=== PATIENT | female | born 1955 | race Caucasian/White ===

== ENCOUNTER → 2017-12-28 14:42 | Outpatient (CLI) | payer OTHER, SELFPAY ==
--- NOTE | 2017-12-28 | DI.MG.S_ITS ---
BILATERAL DIGITAL SCREENING MAMMOGRAM 3D/2D WITH CAD: 12/28/2017 CLINICAL: Routine screening. Family history of breast cancer. Comparison is made to exams dated: 12/29/2015 mammogram, 12/14/2014 mammogram, and 03/14/2005 mammogram - [facility]. There are scattered fibroglandular elements in both breasts. Current study was also evaluated with a Computer Aided Detection (CAD) system. No significant masses, calcifications, or other findings are seen in either breast. There has been no significant interval change. IMPRESSION: NEGATIVE There is no mammographic evidence of malignancy. A 1 year screening mammogram is recommended. This exam was interpreted at Station ID: [id number]. NOTE: For mammograms, a report in lay terms will be sent to the patient. Approximately 15% of breast malignancies will not be visualized mammographically. In the management of a palpable breast mass, a negative mammogram must not discourage biopsy of a clinically suspicious lesion. Electronically Signed By: Lazara quach/vinay:12/28/2017 15:37:40 letter sent: Normal Exam ACR BI-RADS Category 1: Negative 3341F
== END ==
PROVIDERS: PCP Physician Assistant; Visit Provider Physician Assistant
DX: Z12.31 Encounter for screening mammogram for malignant neoplasm of breast (principal)
CPT/HCPCS: 77063; 77067

== ENCOUNTER → 2018-03-15 13:07 | Outpatient (CLI) | payer OTHER, SELFPAY | PROVIDERS: PCP Physician Assistant; Visit Provider Physician Assistant | DX: M81.0 Age-related osteoporosis without current pathological fracture (principal); E07.9 Disorder of thyroid, unspecified; Z82.62 Family history of osteoporosis; Z78.0 Asymptomatic menopausal state | CPT/HCPCS: 77080 ==

== ENCOUNTER → 2019-03-13 07:48 | Outpatient (CLI) | payer OTHER, SELFPAY ==
--- NOTE | 2019-03-13 | DI.MG.S_ITS ---
BILATERAL DIGITAL SCREENING MAMMOGRAM 3D/2D WITH CAD: 03/13/2019 CLINICAL: Routine screening. Family history of breast cancer. Comparison is made to exams dated: 12/28/2017 mammogram, 12/29/2015 mammogram, and 12/14/2014 mammogram - [facility]. There are scattered fibroglandular elements in both breasts. Current study was also evaluated with a Computer Aided Detection (CAD) system. No significant masses, calcifications, or other findings are seen in either breast. There has been no significant interval change. IMPRESSION: NEGATIVE There is no mammographic evidence of malignancy. A 1 year screening mammogram is recommended. This exam was interpreted at Station ID: [id number]. NOTE: For mammograms, a report in lay terms will be sent to the patient. Approximately 15% of breast malignancies will not be visualized mammographically. In the management of a palpable breast mass, a negative mammogram must not discourage biopsy of a clinically suspicious lesion. Electronically Signed By: Brody wood/vinay:03/13/2019 15:50:27 letter sent: Normal Exam ACR BI-RADS Category 1: Negative 3341F
== END ==
PROVIDERS: PCP Physician Assistant; Visit Provider Internal Medicine
DX: Z12.31 Encounter for screening mammogram for malignant neoplasm of breast (principal); Z80.3 Family history of malignant neoplasm of breast
CPT/HCPCS: 77063; 77067

== ENCOUNTER 2020-05-29 00:14 | Emergency (ER) | payer OTHER, SELFPAY ==
[2020-05-29 00:26] VITALS: BP 180/100; PULSE 89; RESP 16; TEMP 36.9; O2SAT 97; BMI 28.3
[2020-05-29 00:49] LABS: Add Manual Diff / Slide Review NO; Basophils Absolute Auto 100 /uL (0-100); Basophils Percent Auto 0.9 % (0-2); Eosinophils Absolute Auto 100 /uL (0-450); Hematocrit 39.5 % (36-46); Hemoglobin 13.7 g/dL (12.0-16.0); Lymphocytes Absolute Auto 1900 /uL (1100-4500); Lymphocytes Percent Auto 22.7 % (25-40); Mean Corpuscular HGB Conc 34.6 % (30-36); Mean Corpuscular Hemoglobin 29.9 PG (26-34); Mean Corpuscular Volume 86.3 fL (80-100); Monocytes Absolute Auto 600 /uL (0-900); Monocytes Percent Auto 7.2 % (3-14); Neutrophils Absolute Auto 5800 /uL (1500-7000); Neutrophils Percent Auto 68.2 % (50-75); Platelet Count 204 X10^3/uL (150-400); Red Blood Cell Count 4.58 X10^6/uL (4.0-5.2); Red Cell Distribution Width 13.3 % (11.6-14.8); White Blood Cell Count 8.5 X10^3/uL (4.5-11.0)
[2020-05-29] MEDS: KETOROLAC 60 MG/2 ML VIAL 15 MG IV (00:54)
[2020-05-29] MEDS: SODIUM CHLORIDE 0.9% 1,000 ML 125 ML IV (00:54)
[2020-05-29 00:59] VITALS: BP 157/97; PULSE 72; O2SAT 96
[2020-05-29 00:59] LABS: Alanine Aminotransferase 30 IU/L (<35); Albumin 4.4 g/dL (3.5-5.0); Albumin Globulin Ratio 1.4 (1.0-2.8); Alkaline Phosphatase 103 U/L (38-126); Aspartate Aminotransferase 25 IU/L (14-36); BUN Creatinine Ratio 18.4 (6-22); Blood Urea Nitrogen 14 mg/dL (7-17); Calcium 9.8 mg/dL (8.4-10.2); Carbon Dioxide 26 mmol/L (22-32); Chloride 104 mmol/L (98-107); Estimated Glomerular Filt Rate > 60.0 mL/min (>60); Globulin 3.1 g/dL (1.7-4.1); Glucose 132 mg/dL (80-110); HEMOLYSIS < 15 (0-50); Lipase 113 U/L (23-300); Potassium 3.7 mmol/L (3.4-5.1); Sodium 138 mmol/L (137-145); Total Protein 7.5 g/dL (6.3-8.2)
[2020-05-29 01:00] VITALS: BP 166/100; PULSE 71; O2SAT 97
--- NOTE | 2020-05-29 01:08 | ED.ABDPAIN ---
HPI - Abdominal Pain General Chief Complaint: Abdominal Pain Stated Complaint: pain in left side around to back Time Seen by Provider: 05/29/20 00:20 Source: patient Mode of arrival: Ambulatory Limitations: no limitations History of Present Illness HPI narrative: 65-year-old female nonsmoker with history of kidney stones presents with a chief complaint of intermittent left-sided pain since Sunday. She states her pain started in her back and is since wrapped around her left flank and into her left groin. She denies any obvious provocation or palliation. She states the episodes are sharp and stabbing in nature and seem to come and go with a mind of their own. She has had episodes of nausea but denies any vomiting. She denies any change in bowel habits such as constipation or diarrhea. She denies any dysuria, frequency, urgency or obvious hematuria. She has had no fever or shaking chills. She denies any injury Related Data Previous Rx's Medication Instructions Recorded ketorolac 10 mg PO Q6H PRN #14 tab 05/29/20 ondansetron 4 mg PO TID-QID PRN #10 tab 05/29/20 Allergies Allergy/AdvReac Type Severity Reaction Status Date / Time Sulfa (Sulfonamide Allergy Unknown Unverified 06/20/17 11:52 Antibiotics) [SULFA (SULFONAMIDE ANTIBIOTICS)] codeine [CODEINE] AdvReac Unknown Unverified 06/20/17 11:52 Review of Systems Constitutional Constitutional: Denies chills, Denies fatigue, Denies fever(s), Denies frequent falls, Denies lethargy and Denies weakness Eyes Eyes: Denies change in vision, Denies eye discharge, Denies irritation and Denies loss of vision ENT Ears, Nose, Mouth, and Throat: Denies change in voice, Denies dizziness, Denies neck pain, Denies sore throat and Denies throat swelling Cardiovascular Cardiovascular: Denies chest pain, Denies irregular heart rhythm, Denies lightheadedness, Denies palpitations, Denies dyspnea, Denies dyspnea on exertion and Denies orthopnea Respiratory Respiratory: Denies cough, Denies dyspnea, Denies dyspnea on exertion and Denies wheezing Gastrointestinal Gastrointestinal: Denies abdominal pain, Denies change in bowel habits, Denies diarrhea, Reports nausea and Denies vomiting Genitourinary Genitourinary: Reports flank pain Genitourinary: Reports flank pain Musculoskeletal Musculoskeletal: Reports back pain, Denies neck pain and Denies numbness Integumentary/Breasts Skin/Breast: Denies pruritus, Denies erythema, Denies rash and Denies wounds Neurologic Neurologic: Denies behavioral changes, Denies confusion, Denies dizziness, Denies frequent falls, Denies loss of vision, Denies numbness and Denies weakness Psychiatric Psychiatric: Denies anxiety, Denies behavioral changes, Denies confusion, Denies depression, Denies homicidal ideation and Denies suicidal ideation Endocrine Endocrine: Denies fatigue, Denies flushing and Denies palpitations Hematologic/Lymphatic Hematologic/Lymphatic: Denies easy bruising Allergic/Immunologic Allergic/Immunologic: Denies urticaria, Denies throat swelling and Denies wheezing Patient History Social History Smoking Status: Never smoker Smoking Status: Never smoker alcohol intake frequency: a few times a month Substance Use Type: does not use Exam Narrative Exam Narrative: GENERAL: [65] year old patient appears stated age. Well-nourished, well-developed patient, in mild distress. HEAD: Atraumatic. Normocephalic. EYES: Pupils equal round and reactive. Extraocular motions intact. No scleral icterus. No injection or drainage. ENT: Nose without bleeding, purulent drainage. Throat without erythema, tonsillar hypertrophy or exudate. Airway patent. NECK: Trachea midline. Non tender CARDIOVASCULAR: Regular rate and rhythm without murmurs, gallops, or rubs. RESPIRATORY: Clear to auscultation. Breath sounds equal bilaterally. No wheezes, rales, or rhonchi. GASTROINTESTINAL: Abdomen soft, non-tender, nondistended. Bowel sounds present in all four quadrants EXTREMITIES: No edema or joint tenderness. BACK: Nontender without deformity or crepitance. No flank tenderness. NEURO: AOx3. SKIN: No rash or erythema of visible areas Initial Vital Signs Initial Vital Signs: Vital Signs Temperature 98.5 F 05/29/20 00:26 Pulse Rate 89 05/29/20 00:26 Respiratory Rate 16 05/29/20 00:26 Blood Pressure 180/100 H 05/29/20 00:26 Pulse Oximetry 97 05/29/20 00:26 Course Orders Ordered: ED Orders 05/29/20 00:40 Complete Blood Count AUTO DIFF Stat Comprehensive Metabolic Panel Stat Lipase Stat 05/29/20 01:09 CT kidney ureter bladder (KUB) Stat Sodium Chloride (Normal Saline 0.9%) 1,000 mls @ 125 mls/hr IV CONT RAD Last Admin: 05/29/20 00:54 Dose: 125 mls/hr Documented by: ROYCE Discontinued Medications Hydrocodone Bitart/Acetaminophen (Hydrocodone/Acet 5/325 Prepack) 1 bottle MISC SEEINSTR ONE Stop: 05/29/20 02:09 Ketorolac Tromethamine (Ketorolac 60 Mg/2 Ml Vial) 15 mg IV NOW ONE Stop: 05/29/20 00:37 Last Admin: 05/29/20 00:54 Dose: 15 mg Documented by: ROYCE Ondansetron HCl (Ondansetron 4 Mg Odt Prepack) 1 bottle MISC SEEINSTR ONE Stop: 05/29/20 02:09 Vital Signs Vital signs: Vital Signs - 8 hr 05/29/20 00:26 05/29/20 00:59 05/29/20 01:00 Temperature 98.5 F Pulse Rate 89 72 71 Respiratory Rate 16 Blood Pressure 180/100 H 157/97 H 166/100 H Pulse Oximetry 97 96 97 MDM - Abdominal Pain Lab Data Result diagrams: 05/29/20 00:40 05/29/20 00:40 Labs: Lab Results 05/29/20 05/29/20 Range/Units 00:40 00:40 WBC 8.5 (4.5-11.0) X10^3/uL RBC 4.58 (4.0-5.2) X10^6/uL Hgb 13.7 (12.0-16.0) g/dL Hct 39.5 (36-46) % MCV 86.3 (80-100) fL MCH 29.9 (26-34) PG MCHC 34.6 (30-36) % RDW 13.3 (11.6-14.8) % Plt Count 204 (150-400) X10^3/uL Neut % (Auto) 68.2 (50-75) % Lymph % (Auto) 22.7 L (25-40) % [place] % (Auto) 7.2 (3-14) % Eos % (Auto) 1.0 L (2-4) % Baso % (Auto) 0.9 (0-2) % Neut # (Auto) 5800 (0533-4869) /uL Lymph # (Auto) 1900 (9472-9451) /uL [place] # (Auto) 600 (0-900) /uL Eos # (Auto) 100 (0-450) /uL Baso # (Auto) 100 (0-100) /uL Sodium 138 (137-145) mmol/L Potassium 3.7 (3.4-5.1) mmol/L Chloride 104 (98-107) mmol/L Carbon Dioxide 26 (22-32) mmol/L BUN 14 (7-17) mg/dL Creatinine 0.76 (0.52-1.04) mg/dL Estimated GFR > 60.0 (>60) mL/min BUN/Creatinine Ratio 18.4 (6-22) Glucose 132 H (80-110) mg/dL Calcium 9.8 (8.4-10.2) mg/dL Total Bilirubin 1.0 (0.2-1.3) mg/dL AST 25 (14-36) IU/L ALT 30 (<35) IU/L Alkaline Phosphatase 103 (38-126) U/L Total Protein 7.5 (6.3-8.2) g/dL Albumin 4.4 (3.5-5.0) g/dL Globulin 3.1 (1.7-4.1) g/dL Albumin/Globulin Ratio 1.4 (1.0-2.8) Lipase 113 (23-300) U/L Point of care testing: Urine Dip Bedside Urine Glucose Negative Bedside Urine Bilirubin - Negative Bedside Urine Ketone - Negative Urine Specific [place] 1.025 Bedside Urine Occult Blood +/- Bedside Urine Urobilinogen +/- 1mg Bedside Urine Nitrite - Negative Bedside Urine Leukocytes - Negative Esterase Imaging Data CT scan - abdomen/pelvis: Radiologist's Impression: No acute process Nonobstructing bilateral nephrolithiasis MDM Narrative Medical decision making narrative: Multiple etiologies for patient's symptoms considered including: [kidney stone given intermittent pain of flank with hematuria vs. ureteral spasm vs. pyelonephritis vs. bowel obstruction vs. other] Patient's symptoms improved over duration of stay with above-stated therapies. indings and discharge diagnosis discussed with patient/family followed by verbalization of understanding Return precautions discussed with patient/family whom verbalize understanding. Discharge Plan Departure Patient Disposition: Home Clinical Impression: Acute flank pain Instructions: DI for Kidney Stones Activity Restrictions/Additional Instructions: *You have been diagnosed with [left flank pain with hematuria is highly suspicious for kidney stones. Your blood work, urine and CT are very reassuring.] *What to do: *Take medications as directed: Prescription for anti-inflammatory and antinausea medicine have been electronically transmitted to [facility] your request * you have been given the contact information for the [facility] resource line. Please call Sunday morning and let them know you were seen in the emergency department and we asked your seen in follow-up. They will help you establish with a local primary care provider *Return to ER if you should have any new, worsening or concerning symptoms, such as [worsening pain, fever over 101 F, persistent vomiting or other bothersome symptoms] Prescriptions: New ketorolac 10 mg tablet 10 mg PO Q6H PRN (Reason: pain) Qty: 14 RF: 0 ondansetron 4 mg tablet,disintegrating 4 mg PO TID-QID PRN (Reason: nausea and vomiting) Qty: 10 RF: 0 Referrals: [facility] [Outside] Bia Jasmine PA-C [Primary Care Provider] -
--- NOTE | 2020-05-29 01:09 | DI.CT.S_ITS ---
PROCEDURE: CT KIDNEY URETER BLADDER (KUB) INDICATIONS: severe left flank pain, radiates to groin, hematuria TECHNIQUE: Noncontrast 5 mm thick sections acquired from the diaphragms to the symphysis. 5 mm thick coronal and sagittal reformats were then performed. For radiation dose reduction, the following was used: automated exposure control, adjustment of mA and/or kV according to patient size. COMPARISON: [facility], CT, KIDNEY/ URETER/BLADDER, 01/02/2009, 12:33. [facility], CT, KIDNEY/ URETER/BLADDER, 08/18/2011, 9:54. FINDINGS: Image quality: Excellent. Lung bases: Lung bases are clear. Heart size is normal. Coronary artery calcifications suspected. Small hiatal hernia. Urinary system: Both kidneys are normal in size. A few kidney stones bilaterally. At least 2 punctate on the right. At least 2 on the left; largest at the inferior pole measuring 5 mm. No hydronephrosis or perinephric fat stranding. Both ureters appear non-dilated throughout their expected courses. Bladder wall thickness is normal; no calcified bladder stones. Other solid organs: Liver is normal in size. Hypodense focus in the left lobe of the liver measuring 1.1 x 1 cm, (2/13). This is not definitely seen on the prior noncontrast CT but may be faintly visualized on the CT from 2008. Gallbladder is unremarkable. Pancreas is normal in contours. Spleen is normal in size. No adrenal nodules. Peritoneum and bowel: Unenhanced bowel loops demonstrate normal wall thickness and caliber. A few colonic diverticuli. Normal appendix. No free fluid or air. Nodes and vessels: No retroperitoneal or mesenteric adenopathy by size criteria. Aorta and inferior vena cava are normal in caliber. Mild calcified atherosclerotic plaque. Abdominal wall: No ventral hernias. Pelvis: No free pelvic fluid. No inguinal hernias or adenopathy. Anteverted uterus. Bones: No suspicious bony lesions. No vertebral body compression fractures. IMPRESSION: 1. No hydronephrosis. No obstructing calculus demonstrated. 2. Small bilateral kidney stones. 3. No free fluid. 4. Hypodense lesion in the left lobe of the liver measuring 1.1 cm. This may have been present on the CT from 2008. This may represent a hemangioma or adenoma but is indeterminate. -Recommend non emergent further characterization with three-phase liver CT or liver MRI. Minor discrepancy with the overnight preliminary interpretation. Comment: Findings were discussed with Delfino Ballesteros at the time of dictation. Dictated by: Peter Venegas M.D. on 05/29/2020 at 9:21 Approved by: Peter Venegas M.D. on 05/29/2020 at 9:34
[2020-05-29 01:30] VITALS: PULSE 76; O2SAT 95
[2020-05-29 02:00] VITALS: PULSE 71; O2SAT 96
[2020-05-29] MEDS: HYDROCODONE/ACET 5/325 PREPACK 1 BOTTLE MISC (02:21)
[2020-05-29] MEDS: ONDANSETRON 4 MG ODT PREPACK 1 BOTTLE MISC (02:21)
[2020-05-29 02:23] VITALS: BP 145/92; PULSE 74; O2SAT 96
== END 2020-05-29 02:30 | disposition home or self-care (01) ==
PROVIDERS: Emergency Provider Emergency Medicine; PCP Physician Assistant
DX: R10.9 Unspecified abdominal pain (principal)
CPT/HCPCS: 36415; 74176; 80053; 81003; 83690; 85025; 96361; 96374; 99284; J1885

== ENCOUNTER → 2021-06-17 15:48 | Outpatient (CLI) | payer OTHER, SELFPAY ==
--- NOTE | 2021-06-17 | DI.MG.S_ITS ---
BILATERAL DIGITAL SCREENING MAMMOGRAM 3D/2D WITH CAD: 06/17/2021 CLINICAL: Routine screening. Family history of breast cancer. Comparison is made to exams dated: 03/13/2019 mammogram, 12/28/2017 mammogram, and 12/29/2015 mammogram - [facility]. There are scattered fibroglandular elements in both breasts. Current study was also evaluated with a Computer Aided Detection (CAD) system. No significant masses, calcifications, or other findings are seen in either breast. There has been no significant interval change. IMPRESSION: NEGATIVE There is no mammographic evidence of malignancy. A 1 year screening mammogram is recommended. This exam was interpreted at Station ID: [id number]. NOTE: For mammograms, a report in lay terms will be sent to the patient. Approximately 15% of breast malignancies will not be visualized mammographically. In the management of a palpable breast mass, a negative mammogram must not discourage biopsy of a clinically suspicious lesion. Electronically Signed By: Alfonso Ramos acr/penrad:06/17/2021 16:48:08 letter sent: Normal Exam ACR BI-RADS Category 1: Negative 3341F
== END ==
PROVIDERS: PCP Internal Medicine; Referring Provider Internal Medicine; Visit Provider Internal Medicine
DX: Z12.31 Encounter for screening mammogram for malignant neoplasm of breast (principal); Z80.3 Family history of malignant neoplasm of breast
CPT/HCPCS: 77063; 77067

== ENCOUNTER → 2023-01-25 15:16 | Outpatient (CLI) | payer OTHER, SELFPAY ==
[2023-01-25 18:19] LABS: Alanine Aminotransferase 38 IU/L (<35); Albumin 4.1 g/dL (3.5-5.0); Albumin Globulin Ratio 1.2 (1.0-2.8); Alkaline Phosphatase 267 U/L (38-126); Aspartate Aminotransferase 24 IU/L (14-36); Bilirubin Total 0.8 mg/dL (0.2-1.3); Blood Urea Nitrogen 16 mg/dL (7-17); Calcium 9.9 mg/dL (8.4-10.2); Carbon Dioxide 25 mmol/L (22-32); Chloride 102 mmol/L (98-107); Estimated Glomerular Filt Rate > 60 mL/min (>60); Globulin 3.5 g/dL (1.7-4.1); Glucose 103 mg/dL (80-110); HEMOLYSIS < 15 (0-50); Potassium 3.6 mmol/L (3.4-5.1); Sodium 136 mmol/L (137-145); Total Protein 7.6 g/dL (6.3-8.2)
== END ==
PROVIDERS: PCP Internal Medicine; Referring Provider Internal Medicine; Visit Provider Internal Medicine
DX: R79.89 Other specified abnormal findings of blood chemistry (principal); N20.0 Calculus of kidney
CPT/HCPCS: 36415; 80053

== ENCOUNTER → 2023-07-14 09:32 | Outpatient (CLI) | payer OTHER, SELFPAY ==
--- NOTE | 2023-07-14 09:33 | DI.MG.S_ITS ---
BILATERAL DIGITAL SCREENING MAMMOGRAM 3D/2D WITH CAD: 07/14/2023 CLINICAL: Routine screening. Family history of breast cancer. Comparison is made to exams dated: 06/17/2021 mammogram, 03/13/2019 mammogram, and 12/28/2017 mammogram - [facility]. There are scattered areas of fibroglandular density in both breasts (category b / 25%-50% glandular tissue). Current study was also evaluated with a Computer Aided Detection (CAD) system. No significant masses, calcifications, or other findings are seen in either breast. There has been no significant interval change. IMPRESSION: NEGATIVE There is no mammographic evidence of malignancy. A 1 year screening mammogram is recommended. Based on the Tyrer Cuzick model (a risk assessment model) the patient's lifetime risk is 12.2% and her 10 year risk is 6.2%. According to the ACR, ACS, and NCCN guidelines, an annual breast MRI exam along with mammogram is recommended if the patient's lifetime risk is 20% or greater. This exam was interpreted at Station ID: [id number]. NOTE: For mammograms, a report in lay terms will be sent to the patient. Approximately 15% of breast malignancies will not be visualized mammographically. In the management of a palpable breast mass, a negative mammogram must not discourage biopsy of a clinically suspicious lesion. Electronically Signed By: Brody wood/vinay:07/14/2023 12:25:18 letter sent: Normal Exam ACR BI-RADS Category 1: Negative 3341F
== END ==
PROVIDERS: PCP Internal Medicine; Referring Provider Internal Medicine; Visit Provider Internal Medicine
DX: Z12.31 Encounter for screening mammogram for malignant neoplasm of breast (principal); R92.323 Mammographic fibroglandular density, bilateral breasts; Z80.3 Family history of malignant neoplasm of breast
CPT/HCPCS: 77063; 77067

== ENCOUNTER → 2023-09-14 10:02 | Outpatient (CLI) | payer OTHER, SELFPAY ==
--- NOTE | 2023-09-14 | DI.RAD.S_ITS ---
PROCEDURE: XR DEXA AXIAL SKELETON INDICATIONS: Asymptomatic menopausal state COMPARISON: None. FINDINGS: Lumbar Spine: Bone mineral density 0.730 g/cm2, T score -2.9, previously -2.6, dissimilar scan type does not allow for statistical comparison. Left Hip: Bone mineral density 0.768 g/cm2, T score -1.4, stable. Left Femoral Neck: Bone mineral density 0.624 g/cm2, T score -2, stable. Right Hip: Bone mineral density 0.778 g/cm2, T score -1.3, stable. Right Femoral Neck: Bone mineral density 0.591 g/cm2, T score -2.3, previously -1.9, dissimilar scan type does not allow for statistical comparison. Fracture Risk Calculation (when applicable): Not applicable due to osteoporosis diagnosis. (T score greater or equal to -1.0 to: NORMAL) (T score from -1.1 to -2.4: OSTEOPENIA) (T score less than or equal to -2.5: OSTEOPOROSIS) IMPRESSION: Osteoporosis. Dissimilar scan type does not allow for statistical comparison. Follow-up guidelines as follows: Osteoporosis: Consider a repeat DEXA and Vertebral Fracture Assessment (VFA) exam in 2 years or sooner if medically necessary, to reassess this patient's status. Osteopenia: Consider a repeat DEXA in 2-3 years to reassess this patient's status, or if there is a new clinical indication. Normal: Consider a repeat DEXA in 5 years or sooner, or if there is a new clinical indication. All treatment decisions require clinical judgment and consideration of individual patient factors, including patient preferences, comorbidities, previous drug use, risk factors not captured in the FRAX model (e.g., frailty, falls, vitamin D deficiency, increased bone turnover, interval significant decline in bone density ) and possible under- or over-estimation of fracture risk by FRAX. In addition, the NOF Guide recommends that FDA-approved medical therapies be considered in postmenopausal women and men age >= 50 years with a: * Hip or vertebral (clinical or morphometric) fracture * T-score of <=-2.5 at the spine or hip * Ten-year fracture probability by FRAX of >= 3% for hip fracture or >=20% for major osteoporotic fracture. People with diagnosed cases of osteoporosis or at high risk for fracture should have regular bone mineral density tests. For patients eligible for Medicare, routine testing is allowed once every 2 years. The testing frequency can be increased to one year for patients who have rapidly progressing disease, those who are receiving or discontinuing medical therapy to restore bone mass, or have additional risk factors. Dictated by: Yg Mcelroy M.D. on 09/14/2023 at 10:32 Approved by: Yg Mcelroy M.D. on 09/14/2023 at 10:35
== END ==
PROVIDERS: PCP Internal Medicine; Referring Provider Internal Medicine; Visit Provider Internal Medicine
DX: Z78.0 Asymptomatic menopausal state (principal); M81.0 Age-related osteoporosis without current pathological fracture
CPT/HCPCS: 77080

== ENCOUNTER 2024-01-05 10:50 | Emergency (ER) | payer OTHER, SELFPAY ==
[2024-01-05] VITALS (46 sets, daily range): BP systolic 125–186; BP diastolic 73–106; PULSE 77–109; RESP 12–36; TEMP 36; O2SAT 90–99; BMI 30.9
--- NOTE | 2024-01-05 11:13 | ED.EXTPRO ---
HPI - Extremity Problem <Kelle Koroma PA-C - Last Filed: 01/06/24 10:15> General Chief complaint: Extremity Problem,Nontraumatic Stated complaint: poss blood clot L leg Time Seen by Provider: 01/05/24 11:09 History of Present Illness HPI Narrative: Patient is a pleasant 68-year-old female presents to the emergency room department with family with complaints of sudden onset this morning when she woke up of left lower extremity redness full extremity, tightness, pain with ambulation, pain with movement, and then sensation that the leg is quite tight. Hurts when she bends it, painful when she ambulates, patient denies estrogen usage, she does not smoke, no recent injury, no recent fall, no recent trauma. No recent surgical intervention. 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 Has a history of heart attack, takes metoprolol, has atherosclerosis and takes atorvastatin. She also takes a baby aspirin but did not take her baby aspirin this morning. She has no other further complaints. No shortness of breath, chest pain, diaphoresis, weakness, nausea, vomiting. She has no urinary symptoms. She has no other musculoskeletal discomfort and pain. She has no weakness numbness or tingling to the extremity. Related Data Previous Rx's Medication Instructions Recorded ketorolac 10 mg tablet 10 mg PO Q6H PRN pain #14 tabs 05/29/20 ondansetron 4 mg disintegrating 4 mg PO TID-QID PRN nausea and 05/29/20 tablet vomiting #10 tabs Allergies Allergy/AdvReac Type Severity Reaction Status Date / Time Sulfa (Sulfonamide Allergy Unknown Unverified 06/20/17 11:52 Antibiotics) [SULFA (SULFONAMIDE ANTIBIOTICS)] codeine [CODEINE] AdvReac Unknown Unverified 06/20/17 11:52 Review of Systems <Kelle Koroma PA-C - Last Filed: 01/06/24 10:15> Review of Systems Narrative: Negative except as above Musculoskeletal Comments: Left lower extremity swollen tight painful with ambulation painful with movement no recent injury trauma or fall no history of estrogen no history of smoking no history surgical intervention no history of previous DVT Patient History <Kelle Koroma PA-C - Last Filed: 01/06/24 10:15> Social History Smoking Status: Never smoker Smoking Status: Never smoker alcohol intake frequency: a few times a month Substance Use Type: does not use Exam <Kelle Koroma PA-C - Last Filed: 01/06/24 10:15> Initial Vital Signs Initial Vital Signs: Vital Signs Temperature 96.8 F L 01/05/24 10:53 Pulse Rate 102 H 01/05/24 10:53 Respiratory Rate 16 01/05/24 10:53 Blood Pressure 138/94 H 01/05/24 10:53 Pulse Oximetry 98 01/05/24 10:53 Oxygen Delivery Method Room Air 01/05/24 10:53 Reviewed Const General: cooperative, healthy appearing, comfortable, well developed, well groomed, No acute distress, No in distress and No anxious Eyes General: Yes appearance normal, both eyes and all related structures Pupils: PERRL EOM: EOM intact bilaterally Resp Auscultation: clear to auscultation bilaterally, no crackles, no rales, no rhonchi, no wheezes, no rubs and no vesicular sounds Tactile Fremitus: tactile fremitus absent Cardio Rate: regular rate Rhythm: regular rhythm Heart Sounds: S1 normal, S2 normal, normal S1 and S2, no click, no gallops, no murmurs and no rubs Skin Other: The lower extremity on the left side is red, noticeably different color and temperature than the other extremities. Neuro Other: Cranial nerves are grossly intact, cognition, speech are intact. Extrem Other: Range of motion, strength, pulses, cap refill preserved in the upper extremities and right lower extremity. The left lower extremity is Fausto to observation, cap refill is preserved, her distal popliteal and pedal pulses are present. There is no edema, negative Homans sign, no cords, plantar and dorsiflexion causes some discomfort and pain but it is more of a sensation of movement of tightness in the calf and thigh area. There is no ecchymosis, there is no bruising that is noted on exam. There is tightness noted on exam of the calf and thigh area. Her femoral pulses are present but slightly diminished. There is no edema to the thigh. Patient is able to raise leg off the bed does not cause her any discomfort and pain active range of motion causes her some discomfort, passive range of motion causes her discomfort, she is able to stand and ambulate under her own power though there is an antalgic gait due to the discomfort and pain associated with a tightness in the left lower extremity. Right thigh 19 in, left thigh 20.5 in, right calf 14.35 in, left calf 15.5 in. Psych Other: Appearance, mental status, speech, movement, mood, affect, thought process, thought content and judgment are intact <Ester Leslie MD - Last Filed: 01/06/24 20:37> Initial Vital Signs Initial Vital Signs: Vital Signs Temperature 96.8 F L 01/05/24 10:53 Pulse Rate 102 H 01/05/24 10:53 Respiratory Rate 16 01/05/24 10:53 Blood Pressure 138/94 H 01/05/24 10:53 Pulse Oximetry 98 01/05/24 10:53 Oxygen Delivery Method Room Air 01/05/24 10:53 <Marquis Culver MD - Last Filed: 01/06/24 07:31> Initial Vital Signs Initial Vital Signs: Vital Signs Temperature 96.8 F L 01/05/24 10:53 Pulse Rate 102 H 01/05/24 10:53 Respiratory Rate 16 01/05/24 10:53 Blood Pressure 138/94 H 01/05/24 10:53 Pulse Oximetry 98 01/05/24 10:53 Oxygen Delivery Method Room Air 01/05/24 10:53 Scores <Kelle Koroma PA-C - Last Filed: 01/06/24 10:15> GCS Citation: 15 Wells' Criteria for PE Citation:: 4.5 Neal' Criteria for DVT Citation:: 3 likely Course <Kelle Koroma PA-C - Last Filed: 01/06/24 10:15> Orders Ordered: Discontinued Medications Atorvastatin Calcium (Atorvastatin 20 Mg Tablet) 80 mg PO NOW ONE Stop: 01/05/24 19:52 Last Admin: 01/05/24 20:03 Dose: 80 mg Documented By: BELTRAN Heparin Sodium (Porcine) (Heparin 5,000 Unit/Ml Vial) 6,500 unit 80 unit/kg (6500 unit) IV NOW ONE Stop: 01/05/24 15:56 Last Admin: 01/05/24 16:42 Dose: 6,500 unit Documented By: JOEL Heparin Sodium/Dextrose (Heparin Drip) 25,000 unit in 500 mls @ 28.576 mls/hr IV CONT RAD; Protocol Last Titration: 01/06/24 07:15 Dose: 13 units/kg/hr, 20.639 mls/hr Documented By: BELTRAN Co-signed By: ZACH Titration: 01/06/24 00:23 Dose: 14 units/kg/hr, 22.226 mls/hr Documented By: BELTRAN Co-signed By: LINDSEY Titration: 01/05/24 23:25 Dose: 0 units/kg/hr, 0 mls/hr Documented By: BELTRAN Co-signed By: XIMENA Admin: 01/05/24 16:43 Dose: 18 units/kg/hr, 28.576 mls/hr Documented By: JOEL Co-signed By: JESSICA Metoprolol Succinate (Metoprolol Er 50 Mg Tablet) 50 mg PO NOW ONE Stop: 01/05/24 19:50 Last Admin: 01/05/24 20:03 Dose: 50 mg Documented By: BELTRAN Vital Signs Vital signs: Vital Signs - 8 hr 01/06/24 02:20 01/06/24 02:20 01/06/24 02:30 Pulse Rate 71 75 Respiratory Rate 15 16 Blood Pressure 108/73 Pulse Oximetry 94 94 Oxygen Delivery Method 01/06/24 02:40 01/06/24 02:40 01/06/24 03:00 Pulse Rate 72 Respiratory Rate 16 Blood Pressure 116/75 103/69 Pulse Oximetry 95 Oxygen Delivery Method 01/06/24 03:00 01/06/24 03:20 01/06/24 03:20 Pulse Rate 66 74 Respiratory Rate 16 17 Blood Pressure 119/68 Pulse Oximetry 95 96 Oxygen Delivery Method Room Air 01/06/24 03:30 01/06/24 03:40 01/06/24 03:40 Pulse Rate 71 69 Respiratory Rate 17 16 Blood Pressure 112/71 Pulse Oximetry 92 93 Oxygen Delivery Method Room Air Room Air 01/06/24 04:00 01/06/24 04:00 01/06/24 04:20 Pulse Rate 68 69 Respiratory Rate 17 16 Blood Pressure 105/58 L Pulse Oximetry 94 93 Oxygen Delivery Method 01/06/24 04:24 01/06/24 04:24 01/06/24 04:30 Pulse Rate 73 76 Respiratory Rate 18 20 Blood Pressure 111/67 Pulse Oximetry 96 97 Oxygen Delivery Method 01/06/24 05:00 01/06/24 05:30 01/06/24 06:02 Pulse Rate 71 69 Respiratory Rate 17 15 Blood Pressure 119/72 Pulse Oximetry 93 96 Oxygen Delivery Method 01/06/24 06:02 Pulse Rate 71 Respiratory Rate 24 Blood Pressure Pulse Oximetry 96 Oxygen Delivery Method Reviewed <Ester Leslie MD - Last Filed: 01/06/24 20:37> Orders Ordered: Discontinued Medications Atorvastatin Calcium (Atorvastatin 20 Mg Tablet) 80 mg PO NOW ONE Stop: 01/05/24 19:52 Last Admin: 01/05/24 20:03 Dose: 80 mg Documented By: BELTRAN Heparin Sodium (Porcine) (Heparin 5,000 Unit/Ml Vial) 6,500 unit 80 unit/kg (6500 unit) IV NOW ONE Stop: 01/05/24 15:56 Last Admin: 01/05/24 16:42 Dose: 6,500 unit Documented By: JOEL Heparin Sodium/Dextrose (Heparin Drip) 25,000 unit in 500 mls @ 28.576 mls/hr IV CONT RAD; Protocol Last Titration: 01/06/24 07:15 Dose: 13 units/kg/hr, 20.639 mls/hr Documented By: BELTRAN Co-signed By: KM Titration: 01/06/24 00:23 Dose: 14 units/kg/hr, 22.226 mls/hr Documented By: BELTRAN Co-signed By: KW Titration: 01/05/24 23:25 Dose: 0 units/kg/hr, 0 mls/hr Documented By: BELTRAN Co-signed By: XIMENA Admin: 01/05/24 16:43 Dose: 18 units/kg/hr, 28.576 mls/hr Documented By: JOEL Co-signed By: JESSICA Metoprolol Succinate (Metoprolol Er 50 Mg Tablet) 50 mg PO NOW ONE Stop: 01/05/24 19:50 Last Admin: 01/05/24 20:03 Dose: 50 mg Documented By: BELTRAN Vital Signs Vital signs: Vital Signs - 8 hr 01/06/24 02:20 01/06/24 02:20 01/06/24 02:30 Pulse Rate 71 75 Respiratory Rate 15 16 Blood Pressure 108/73 Pulse Oximetry 94 94 Oxygen Delivery Method 01/06/24 02:40 01/06/24 02:40 01/06/24 03:00 Pulse Rate 72 Respiratory Rate 16 Blood Pressure 116/75 103/69 Pulse Oximetry 95 Oxygen Delivery Method 01/06/24 03:00 01/06/24 03:20 01/06/24 03:20 Pulse Rate 66 74 Respiratory Rate 16 17 Blood Pressure 119/68 Pulse Oximetry 95 96 Oxygen Delivery Method Room Air 01/06/24 03:30 01/06/24 03:40 01/06/24 03:40 Pulse Rate 71 69 Respiratory Rate 17 16 Blood Pressure 112/71 Pulse Oximetry 92 93 Oxygen Delivery Method Room Air Room Air 01/06/24 04:00 01/06/24 04:00 01/06/24 04:20 Pulse Rate 68 69 Respiratory Rate 17 16 Blood Pressure 105/58 L Pulse Oximetry 94 93 Oxygen Delivery Method 01/06/24 04:24 01/06/24 04:24 01/06/24 04:30 Pulse Rate 73 76 Respiratory Rate 18 20 Blood Pressure 111/67 Pulse Oximetry 96 97 Oxygen Delivery Method 01/06/24 05:00 01/06/24 05:30 01/06/24 06:02 Pulse Rate 71 69 Respiratory Rate 17 15 Blood Pressure 119/72 Pulse Oximetry 93 96 Oxygen Delivery Method 01/06/24 06:02 Pulse Rate 71 Respiratory Rate 24 Blood Pressure Pulse Oximetry 96 Oxygen Delivery Method <Marquis Culver MD - Last Filed: 01/06/24 07:31> Orders Ordered: Discontinued Medications Atorvastatin Calcium (Atorvastatin 20 Mg Tablet) 80 mg PO NOW ONE Stop: 01/05/24 19:52 Last Admin: 01/05/24 20:03 Dose: 80 mg Documented By: BELTRAN Heparin Sodium (Porcine) (Heparin 5,000 Unit/Ml Vial) 6,500 unit 80 unit/kg (6500 unit) IV NOW ONE Stop: 01/05/24 15:56 Last Admin: 01/05/24 16:42 Dose: 6,500 unit Documented By: JOEL Heparin Sodium/Dextrose (Heparin Drip) 25,000 unit in 500 mls @ 28.576 mls/hr IV CONT RAD; Protocol Last Titration: 01/06/24 07:15 Dose: 13 units/kg/hr, 20.639 mls/hr Documented By: BELTRAN Co-signed By: ZACH Titration: 01/06/24 00:23 Dose: 14 units/kg/hr, 22.226 mls/hr Documented By: BELTRAN Co-signed By: LINDSEY Titration: 01/05/24 23:25 Dose: 0 units/kg/hr, 0 mls/hr Documented By: BELTRAN Co-signed By: XIMENA Admin: 01/05/24 16:43 Dose: 18 units/kg/hr, 28.576 mls/hr Documented By: JOEL Co-signed By: JESSICA Metoprolol Succinate (Metoprolol Er 50 Mg Tablet) 50 mg PO NOW ONE Stop: 01/05/24 19:50 Last Admin: 01/05/24 20:03 Dose: 50 mg Documented By: BELTRAN Vital Signs Vital signs: Vital Signs - 8 hr 01/06/24 02:20 01/06/24 02:20 01/06/24 02:30 Pulse Rate 71 75 Respiratory Rate 15 16 Blood Pressure 108/73 Pulse Oximetry 94 94 Oxygen Delivery Method 01/06/24 02:40 01/06/24 02:40 01/06/24 03:00 Pulse Rate 72 Respiratory Rate 16 Blood Pressure 116/75 103/69 Pulse Oximetry 95 Oxygen Delivery Method 01/06/24 03:00 01/06/24 03:20 01/06/24 03:20 Pulse Rate 66 74 Respiratory Rate 16 17 Blood Pressure 119/68 Pulse Oximetry 95 96 Oxygen Delivery Method Room Air 01/06/24 03:30 01/06/24 03:40 01/06/24 03:40 Pulse Rate 71 69 Respiratory Rate 17 16 Blood Pressure 112/71 Pulse Oximetry 92 93 Oxygen Delivery Method Room Air Room Air 01/06/24 04:00 01/06/24 04:00 01/06/24 04:20 Pulse Rate 68 69 Respiratory Rate 17 16 Blood Pressure 105/58 L Pulse Oximetry 94 93 Oxygen Delivery Method 01/06/24 04:24 01/06/24 04:24 01/06/24 04:30 Pulse Rate 73 76 Respiratory Rate 18 20 Blood Pressure 111/67 Pulse Oximetry 96 97 Oxygen Delivery Method 01/06/24 05:00 01/06/24 05:30 01/06/24 06:02 Pulse Rate 71 69 Respiratory Rate 17 15 Blood Pressure 119/72 Pulse Oximetry 93 96 Oxygen Delivery Method 01/06/24 06:02 Pulse Rate 71 Respiratory Rate 24 Blood Pressure Pulse Oximetry 96 Oxygen Delivery Method MDM - Extremity (Nontraumatic) <Kelle Koroma PA-C - Last Filed: 01/06/24 10:15> Lab Data 01/06/24 06:49 01/05/24 13:28 Labs: Lab Results 01/05/24 01/05/24 01/05/24 Range/Units 13:28 16:30 22:48 WBC 10.6 (4.5-11.0) X10^3/uL RBC 4.66 (4.0-5.2) X10^6/uL Hgb 13.7 (12.0-16.0) g/dL Hct 40.7 (36-46) % MCV 87.5 (80-100) fL MCH 29.4 (26-34) PG MCHC 33.6 (30-36) % RDW 13.7 (11.6-14.8) % Plt Count 233 (150-400) X10^3/uL Neut % (Auto) 84.8 H (50-75) % Lymph % (Auto) 8.9 L (25-40) % [place] % (Auto) 5.3 (3-14) % Eos % (Auto) 0.6 L (2-4) % Baso % (Auto) 0.4 (0-2) % Neut # (Auto) 9000 H (7533-6458) /uL Lymph # (Auto) 900 L (9863-3756) /uL [place] # (Auto) 600 (0-900) /uL Eos # (Auto) 100 (0-450) /uL Baso # (Auto) 0 (0-100) /uL PT 11.0 (9.4-12.5) SECONDS INR 1.0 (0.9-1.3) APTT 31 32 177 H* D (25.1-36.5) SECONDS D-Dimer 3908 H (<500) ng/ml Sodium 138 (137-145) mmol/L Potassium 4.1 (3.4-5.1) mmol/L Chloride 105 (98-107) mmol/L Carbon Dioxide 23 (22-32) mmol/L BUN 11 (7-17) mg/dL Creatinine 0.84 (0.52-1.04) mg/dL Estimated GFR > 60 (>60) mL/min BUN/Creatinine Ratio 13.1 (6-22) Glucose 122 H (80-110) mg/dL Calcium 9.7 (8.4-10.2) mg/dL Total Bilirubin 0.8 (0.2-1.3) mg/dL AST 28 (14-36) IU/L ALT 27 (<35) IU/L Alkaline Phosphatase 117 (38-126) U/L Total Creatine Kinase 68 (30-135) U/L Troponin I < 0.012 (0.01-0.034) ng/mL Total Protein 8.3 H (6.3-8.2) g/dL Albumin 4.7 (3.5-5.0) g/dL Globulin 3.6 (1.7-4.1) g/dL Albumin/Globulin Ratio 1.3 (1.0-2.8) 01/06/24 01/06/24 Range/Units 06:37 06:49 WBC (4.5-11.0) X10^3/uL RBC (4.0-5.2) X10^6/uL Hgb 12.0 (12.0-16.0) g/dL Hct 35.5 L (36-46) % MCV (80-100) fL MCH (26-34) PG MCHC (30-36) % RDW (11.6-14.8) % Plt Count 203 (150-400) X10^3/uL Neut % (Auto) (50-75) % Lymph % (Auto) (25-40) % [place] % (Auto) (3-14) % Eos % (Auto) (2-4) % Baso % (Auto) (0-2) % Neut # (Auto) (3074-0039) /uL Lymph # (Auto) (7888-6502) /uL [place] # (Auto) (0-900) /uL Eos # (Auto) (0-450) /uL Baso # (Auto) (0-100) /uL PT (9.4-12.5) SECONDS INR (0.9-1.3) APTT 113 H* D (25.1-36.5) SECONDS D-Dimer (<500) ng/ml Sodium (137-145) mmol/L Potassium (3.4-5.1) mmol/L Chloride (98-107) mmol/L Carbon Dioxide (22-32) mmol/L BUN (7-17) mg/dL Creatinine (0.52-1.04) mg/dL Estimated GFR (>60) mL/min BUN/Creatinine Ratio (6-22) Glucose (80-110) mg/dL Calcium (8.4-10.2) mg/dL Total Bilirubin (0.2-1.3) mg/dL AST (14-36) IU/L ALT (<35) IU/L Alkaline Phosphatase (38-126) U/L Total Creatine Kinase (30-135) U/L Troponin I (0.01-0.034) ng/mL Total Protein (6.3-8.2) g/dL Albumin (3.5-5.0) g/dL Globulin (1.7-4.1) g/dL Albumin/Globulin Ratio (1.0-2.8) MDM Narrative Medical decision making narrative: Pleasant 68-year-old female presents to the emergency department with family, sudden onset of left lower extremity redness, redness, and extreme tightness with no provocative activities. Pain with activity, movement, ambulation. The leg feels tight and swollen. Antalgic gait, pain with palpation, pain with attempting to straighten or flex the leg. Patient has pain with active as well as passive range of motion. Please see exam above Initial exam was a DVT And arterial scan Arterial vascular scan was negative for any substantial findings DVT showed extreme clot burden in the left upper portion of the left lower extremity from the femorals above the knee into the iliacs on the left side Patient is currently not a smoker Currently not on any estrogen replacement Currently takes a baby aspirin Unprovoked large burden DVT concerning Patient will have a large DVT workup Spoke with the attending, patient will be moved to the other side Workup has been added patient will be transferred and care will be transferred. Dr. Leslie will take over care <Ester Leslie MD - Last Filed: 01/06/24 20:37> Lab Data Labs: Lab Results 01/05/24 01/05/24 01/05/24 Range/Units 13:28 16:30 22:48 WBC 10.6 (4.5-11.0) X10^3/uL RBC 4.66 (4.0-5.2) X10^6/uL Hgb 13.7 (12.0-16.0) g/dL Hct 40.7 (36-46) % MCV 87.5 (80-100) fL MCH 29.4 (26-34) PG MCHC 33.6 (30-36) % RDW 13.7 (11.6-14.8) % Plt Count 233 (150-400) X10^3/uL Neut % (Auto) 84.8 H (50-75) % Lymph % (Auto) 8.9 L (25-40) % [place] % (Auto) 5.3 (3-14) % Eos % (Auto) 0.6 L (2-4) % Baso % (Auto) 0.4 (0-2) % Neut # (Auto) 9000 H (0017-7097) /uL Lymph # (Auto) 900 L (6676-0833) /uL [place] # (Auto) 600 (0-900) /uL Eos # (Auto) 100 (0-450) /uL Baso # (Auto) 0 (0-100) /uL PT 11.0 (9.4-12.5) SECONDS INR 1.0 (0.9-1.3) APTT 31 32 177 H* D (25.1-36.5) SECONDS D-Dimer 3908 H (<500) ng/ml Sodium 138 (137-145) mmol/L Potassium 4.1 (3.4-5.1) mmol/L Chloride 105 (98-107) mmol/L Carbon Dioxide 23 (22-32) mmol/L BUN 11 (7-17) mg/dL Creatinine 0.84 (0.52-1.04) mg/dL Estimated GFR > 60 (>60) mL/min BUN/Creatinine Ratio 13.1 (6-22) Glucose 122 H (80-110) mg/dL Calcium 9.7 (8.4-10.2) mg/dL Total Bilirubin 0.8 (0.2-1.3) mg/dL AST 28 (14-36) IU/L ALT 27 (<35) IU/L Alkaline Phosphatase 117 (38-126) U/L Total Creatine Kinase 68 (30-135) U/L Troponin I < 0.012 (0.01-0.034) ng/mL Total Protein 8.3 H (6.3-8.2) g/dL Albumin 4.7 (3.5-5.0) g/dL Globulin 3.6 (1.7-4.1) g/dL Albumin/Globulin Ratio 1.3 (1.0-2.8) 01/06/24 01/06/24 Range/Units 06:37 06:49 WBC (4.5-11.0) X10^3/uL RBC (4.0-5.2) X10^6/uL Hgb 12.0 (12.0-16.0) g/dL Hct 35.5 L (36-46) % MCV (80-100) fL MCH (26-34) PG MCHC (30-36) % RDW (11.6-14.8) % Plt Count 203 (150-400) X10^3/uL Neut % (Auto) (50-75) % Lymph % (Auto) (25-40) % [place] % (Auto) (3-14) % Eos % (Auto) (2-4) % Baso % (Auto) (0-2) % Neut # (Auto) (5425-4358) /uL Lymph # (Auto) (6553-2405) /uL [place] # (Auto) (0-900) /uL Eos # (Auto) (0-450) /uL Baso # (Auto) (0-100) /uL PT (9.4-12.5) SECONDS INR (0.9-1.3) APTT 113 H* D (25.1-36.5) SECONDS D-Dimer (<500) ng/ml Sodium (137-145) mmol/L Potassium (3.4-5.1) mmol/L Chloride (98-107) mmol/L Carbon Dioxide (22-32) mmol/L BUN (7-17) mg/dL Creatinine (0.52-1.04) mg/dL Estimated GFR (>60) mL/min BUN/Creatinine Ratio (6-22) Glucose (80-110) mg/dL Calcium (8.4-10.2) mg/dL Total Bilirubin (0.2-1.3) mg/dL AST (14-36) IU/L ALT (<35) IU/L Alkaline Phosphatase (38-126) U/L Total Creatine Kinase (30-135) U/L Troponin I (0.01-0.034) ng/mL Total Protein (6.3-8.2) g/dL Albumin (3.5-5.0) g/dL Globulin (1.7-4.1) g/dL Albumin/Globulin Ratio (1.0-2.8) Imaging Data CT scan - chest: Radiologist's Impression: PROCEDURE: CT ANGIO CHEST PE PROTOCOL INDICATIONS: Large unprovoked clot burden in the left lower extremity TECHNIQUE: After the administration of intravenous contrast, 2 mm thick sections acquired from the pulmonary apices to the posterior costophrenic angles. 3-dimensional maximum intensity projection (MIP) coronal and sagittal reformats were then acquired through the thorax. For radiation dose reduction, the following was used: automated exposure control, adjustment of mA and/or kV according to patient size. COMPARISON: None. FINDINGS: Image quality: Diagnostic. Pulmonary arteries: Very small burden proximal segmental pulmonary embolus in the right middle lobe and right lower lobe. Lower Neck: No enlarged lymph nodes. Thyroid: No thyroid nodules which require sonographic follow up, per consensus guidelines. Axillae: No enlarged lymph nodes. Chest Wall: Unremarkable. Bones: Unremarkable. Lungs and Pleura: No pneumothorax or pleural effusions. No consolidation or suspicious nodules. Heart: Heart size is normal. No pericardial effusion. The left ventricle to right ventricle ratio is greater than 1, which does not indicate heart strain. Thoracic Vessels: No aortic aneurysm. Mediastinum and Tata: No enlarged lymph nodes. Esophagus: No wall thickening. No hiatal hernia. Upper Abdomen: Visualized upper abdomen solid organs and bowel loops appear normal. IMPRESSION: Very small burden of segmental pulmonary embolus in the right middle lobe and right lower lobe. No evidence of heart strain or infarct. No acute cardiopulmonary process. Dictated by: Yg Mcelroy M.D. on 01/05/2024 at 15:00 MDM Narrative Medical decision making narrative: Pleasant 68-year-old female presents to the emergency department with family, sudden onset of left lower extremity redness, redness, and extreme tightness with no provocative activities. Pain with activity, movement, ambulation. The leg feels tight and swollen. Antalgic gait, pain with palpation, pain with attempting to straighten or flex the leg. Patient has pain with active as well as passive range of motion. Please see exam above Initial exam was a DVT And arterial scan Arterial vascular scan was negative for any substantial findings DVT showed extreme clot burden in the left upper portion of the left lower extremity from the femorals above the knee into the iliacs on the left side Patient is currently not a smoker Currently not on any estrogen replacement Currently takes a baby aspirin Unprovoked large burden DVT concerning Patient will have a large DVT workup Spoke with the attending, patient will be moved to the other side Workup has been added patient will be transferred and care will be transferred. Dr. Leslie will take over care Care is assumed, patient is examined. No significant medical history, no prior history of blood clots. She does note that her mother had a blood clot in her leg at 1 point in her life. She states she leads a sedentary lifestyle. No personal history of cancer no recent travel. Woke up this morning with what felt like a cramp in her leg noted that the left leg was swollen blue and painful compared to the right. Venous ultrasound shows extensive deep venous thrombosis extending from the common femoral vein to the superficial femoral vein. Arterial ultrasound shows patent lower extremity arteries without any hemodynamically significant stenoses CT angiogram does show small burden of proximal segmental pulmonary embolism in the right middle and right lower lobe Patient is slightly tachycardic, she has not hypoxic, slightly hypertensive. Care is briefly reviewed with Dr. Reyes, interventional radiologist at [facility] to see if Interventional thrombectomy is indicated. He will review studies, pictures been sent with patient's permission. Concern for cerulea dolens as well as potential for much more significant pulmonary embolism given the seemingly rapid development of the clot today. His recommendation was to start her on heparin and evaluate further. If she is worse clot can be evacuated tomorrow and if she seems she is improving Procedure can wait till Sunday. Hospitalist at [facility] recommends transfer for iliofemoral DVT with possibility of cerulea dolens in need of vascular or interventional radiology intervention given that neither of these specialties are available at [facility] Will add protein C protein S and factor 5 Leiden prior to starting heparin as that is currently an option. Will discuss with facilities who have vascular surgical capacity as well as Interventional Radiology capacity to discuss transfer. 6pm case reviewed with [facility] as she does have [employer] insurance. They do agree that transfers appropriate. Spoke with Dr. Delfino Charles, vascular surgeon at [facility]. He agreed that elevation, hydration, heparin(and noted that she may need higher doses of heparin based on the volume of her clot) was appropriate. Recommended admission to the hospitalist service with vascular to consult. Whether or not she ends up with thrombolysis or thrombectomy we will be determined on how well she is doing over the course of the evening and additional physical consultation. We will need to talk to admitting hospitalist with vascular consultation 630pm discussed with Dr. Barragan, admitting hospitalist at [facility]. Patient is accepted. Awaiting bed and then will arrange transfer. Patient is aware of transfer plans. Questions are answered she is safe for transfer <Marquis Culver MD - Last Filed: 01/06/24 07:31> Lab Data Labs: Lab Results 01/05/24 01/05/24 01/05/24 Range/Units 13:28 16:30 22:48 WBC 10.6 (4.5-11.0) X10^3/uL RBC 4.66 (4.0-5.2) X10^6/uL Hgb 13.7 (12.0-16.0) g/dL Hct 40.7 (36-46) % MCV 87.5 (80-100) fL MCH 29.4 (26-34) PG MCHC 33.6 (30-36) % RDW 13.7 (11.6-14.8) % Plt Count 233 (150-400) X10^3/uL Neut % (Auto) 84.8 H (50-75) % Lymph % (Auto) 8.9 L (25-40) % [place] % (Auto) 5.3 (3-14) % Eos % (Auto) 0.6 L (2-4) % Baso % (Auto) 0.4 (0-2) % Neut # (Auto) 9000 H (5371-7372) /uL Lymph # (Auto) 900 L (0286-1954) /uL [place] # (Auto) 600 (0-900) /uL Eos # (Auto) 100 (0-450) /uL Baso # (Auto) 0 (0-100) /uL PT 11.0 (9.4-12.5) SECONDS INR 1.0 (0.9-1.3) APTT 31 32 177 H* D (25.1-36.5) SECONDS D-Dimer 3908 H (<500) ng/ml Sodium 138 (137-145) mmol/L Potassium 4.1 (3.4-5.1) mmol/L Chloride 105 (98-107) mmol/L Carbon Dioxide 23 (22-32) mmol/L BUN 11 (7-17) mg/dL Creatinine 0.84 (0.52-1.04) mg/dL Estimated GFR > 60 (>60) mL/min BUN/Creatinine Ratio 13.1 (6-22) Glucose 122 H (80-110) mg/dL Calcium 9.7 (8.4-10.2) mg/dL Total Bilirubin 0.8 (0.2-1.3) mg/dL AST 28 (14-36) IU/L ALT 27 (<35) IU/L Alkaline Phosphatase 117 (38-126) U/L Total Creatine Kinase 68 (30-135) U/L Troponin I < 0.012 (0.01-0.034) ng/mL Total Protein 8.3 H (6.3-8.2) g/dL Albumin 4.7 (3.5-5.0) g/dL Globulin 3.6 (1.7-4.1) g/dL Albumin/Globulin Ratio 1.3 (1.0-2.8) 01/06/24 01/06/24 Range/Units 06:37 06:49 WBC (4.5-11.0) X10^3/uL RBC (4.0-5.2) X10^6/uL Hgb 12.0 (12.0-16.0) g/dL Hct 35.5 L (36-46) % MCV (80-100) fL MCH (26-34) PG MCHC (30-36) % RDW (11.6-14.8) % Plt Count 203 (150-400) X10^3/uL Neut % (Auto) (50-75) % Lymph % (Auto) (25-40) % [place] % (Auto) (3-14) % Eos % (Auto) (2-4) % Baso % (Auto) (0-2) % Neut # (Auto) (7564-8766) /uL Lymph # (Auto) (6058-0926) /uL [place] # (Auto) (0-900) /uL Eos # (Auto) (0-450) /uL Baso # (Auto) (0-100) /uL PT (9.4-12.5) SECONDS INR (0.9-1.3) APTT 113 H* D (25.1-36.5) SECONDS D-Dimer (<500) ng/ml Sodium (137-145) mmol/L Potassium (3.4-5.1) mmol/L Chloride (98-107) mmol/L Carbon Dioxide (22-32) mmol/L BUN (7-17) mg/dL Creatinine (0.52-1.04) mg/dL Estimated GFR (>60) mL/min BUN/Creatinine Ratio (6-22) Glucose (80-110) mg/dL Calcium (8.4-10.2) mg/dL Total Bilirubin (0.2-1.3) mg/dL AST (14-36) IU/L ALT (<35) IU/L Alkaline Phosphatase (38-126) U/L Total Creatine Kinase (30-135) U/L Troponin I (0.01-0.034) ng/mL Total Protein (6.3-8.2) g/dL Albumin (3.5-5.0) g/dL Globulin (1.7-4.1) g/dL Albumin/Globulin Ratio (1.0-2.8) MDM Narrative Medical decision making narrative: Pleasant 68-year-old female presents to the emergency department with family, sudden onset of left lower extremity redness, redness, and extreme tightness with no provocative activities. Pain with activity, movement, ambulation. The leg feels tight and swollen. Antalgic gait, pain with palpation, pain with attempting to straighten or flex the leg. Patient has pain with active as well as passive range of motion. Please see exam above Initial exam was a DVT And arterial scan Arterial vascular scan was negative for any substantial findings DVT showed extreme clot burden in the left upper portion of the left lower extremity from the femorals above the knee into the iliacs on the left side Patient is currently not a smoker Currently not on any estrogen replacement Currently takes a baby aspirin Unprovoked large burden DVT concerning Patient will have a large DVT workup Spoke with the attending, patient will be moved to the other side Workup has been added patient will be transferred and care will be transferred. Dr. Leslie will take over care Care is assumed, patient is examined. No significant medical history, no prior history of blood clots. She does note that her mother had a blood clot in her leg at 1 point in her life. She states she leads a sedentary lifestyle. No personal history of cancer no recent travel. Woke up this morning with what felt like a cramp in her leg noted that the left leg was swollen blue and painful compared to the right. Venous ultrasound shows extensive deep venous thrombosis extending from the common femoral vein to the superficial femoral vein. Arterial ultrasound shows patent lower extremity arteries without any hemodynamically significant stenoses CT angiogram does show small burden of proximal segmental pulmonary embolism in the right middle and right lower lobe Patient is slightly tachycardic, she has not hypoxic, slightly hypertensive. Care is briefly reviewed with Dr. Reyes, interventional radiologist at [facility] to see if Interventional thrombectomy is indicated. He will review studies, pictures been sent with patient's permission. Concern for cerulea dolens as well as potential for much more significant pulmonary embolism given the seemingly rapid development of the clot today. His recommendation was to start her on heparin and evaluate further. If she is worse clot can be evacuated tomorrow and if she seems she is improving Procedure can wait till Sunday. Hospitalist at [facility] recommends transfer for iliofemoral DVT with possibility of cerulea dolens in need of vascular or interventional radiology intervention given that neither of these specialties are available at [facility] Will add protein C protein S and factor 5 Leiden prior to starting heparin as that is currently an option. Will discuss with facilities who have vascular surgical capacity as well as Interventional Radiology capacity to discuss transfer. 6pm case reviewed with [facility] as she does have [facility] insurance. They do agree that transfers appropriate. Spoke with Dr. Delfino Charles, vascular surgeon at [facility]. He agreed that elevation, hydration, heparin(and noted that she may need higher doses of heparin based on the volume of her clot) was appropriate. Recommended admission to the hospitalist service with vascular to consult. Whether or not she ends up with thrombolysis or thrombectomy we will be determined on how well she is doing over the course of the evening and additional physical consultation. We will need to talk to admitting hospitalist with vascular consultation 630pm discussed with Dr. Barragan, admitting hospitalist at [facility]. Patient is accepted. Awaiting bed and then will arrange transfer. Patient is aware of transfer plans. Questions are answered she is safe for transfer 01/05/24, 8 p.m., [place]. Sign-out from Dr. Leslie, anticipate transfer to [facility] for pulmonary embolus without RV dysfunction, has extensive lower extremity clot, possible thrombectomy versus other therapeutic intervention with vascular surgery or Interventional Radiology. Patient on heparin infusion after bolus. However patient is now await listed, likely waiting till beds in the morning. Assumed interim care. 01/06/2024, 7:00 a.m., [place]. Largely uneventful overnight course, some slight decreased leg swelling per nurse's assessments noted. IV heparin infusion ongoing, PTT protocol adjustments in progress. Transfer this morning as planned to [facility]. Nurse to nurse communication has been completed, transportation to be arranged now that bed is available. Critical Care Time <Ester Leslie MD - Last Filed: 01/06/24 20:37> Critical Care Time Critical Care Time: Yes Total Critical Care Time: 47 Attestation: Critical care time is separate from other billable procedures. There is a high probability of a significant, sudden or life-threatening deterioration that requires my full and direct attention, intervention and personal management. This critical care time includes consultation with family and other consulting doctors, review of records, and interpretation of data from labs, EKGs and imaging as well as managements of iliofemoral DVT with potential for worsening PE in the setting of noted PE, parenteral heparin, multiple episodes of re-evaluation and multiple discussion with hospitals up and down the [place] to arrange for appropriate bed availability and transfer. 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 Pulmonary embolism Qualifiers: Pulmonary embolism type: other Chronicity: acute Acute cor pulmonale presence: without acute cor pulmonale Qualified Code(s): I26.99 - Other pulmonary embolism without acute cor pulmonale DVT (deep venous thrombosis) Qualifiers: DVT location: lower extremity Affected thrombotic vein of extremity: iliac Chronicity: acute Laterality: left Qualified Code(s): I82.422 - Acute embolism and thrombosis of left iliac vein Prescriptions: No Action ketorolac 10 mg tablet 10 mg PO Q6H PRN (Reason: pain) Qty: 14 0RF ondansetron 4 mg tablet,disintegrating 4 mg PO TID-QID PRN (Reason: nausea and vomiting) Qty: 10 0RF Referrals: Ree Becerra MD [Primary Care Provider] -
--- NOTE | 2024-01-05 11:24 | DI.US.S_ITS ---
PROCEDURE: US PERIPH VENOUS LOW EXTREM LT INDICATIONS: Pain swelling TECHNIQUE: Real-time imaging, as well as color and pulse Doppler interrogation, were performed of the lower extremity deep veins from the inguinal ligament to the popliteal fossa, with documentation of the visualized calf veins. COMPARISON: None. FINDINGS: There is a filling defect within the common femoral vein, profundus vein, superficial femoral vein . Slow blood flow seen within the posterior tibial vein and popliteal vein. IMPRESSION: Extensive deep venous thrombosis of the left lower extremity, extending t from the common femoral vein to the superficial femoral vein. Dictated by: Yg Mcelroy M.D. on 01/05/2024 at 13:31 Approved by: Yg Mcelroy M.D. on 01/05/2024 at 13:33
--- NOTE | 2024-01-05 11:29 | PC.NURSE ---
Patient woke with tightness in left leg. Attempted to stretch leg and take hot bath with no relief. Patient noted swelling from hip down. Approx 1.5 inch difference in size left compared to right. Left leg discoloration noted throughout. Pedal pulses palpable. Patient denies hx of clots, denies chest pain or SOB. Patient take baby aspirin for cardiac stent
--- NOTE | 2024-01-05 11:30 | DI.US.S_ITS ---
PROCEDURE: US ARTERIAL DUPLEX LE LT INDICATIONS: r/o art occlusion TECHNIQUE: Color and pulse Doppler interrogation was performed of the left lower extremity arterial system, with image documentation. COMPARISON: None. FINDINGS: Common femoral artery: 75 cm/sec, with triphasic flow. Deep femoral artery: 35 cm/sec, with triphasic flow. Proximal superficial femoral artery: 64 cm/sec, with triphasic flow. Mid superficial femoral artery: 62 cm/sec, with triphasic flow. Distal superficial femoral artery: 62 cm/sec, with triphasic flow. Popliteal artery: 40 cm/sec, with triphasic flow. Posterior tibial artery: 32 cm/sec, with triphasic flow. Anterior tibial artery/dorsalis pedis: 39 cm/sec, with triphasic flow. Clayton-scale imaging description: No significant atherosclerotic disease. IMPRESSION: Patent lower extremity without hemodynamically significant stenosis. Dictated by: Yg Mcelroy M.D. on 01/05/2024 at 13:41 Approved by: Yg Mcelroy M.D. on 01/05/2024 at 13:43
--- NOTE | 2024-01-05 13:15 | DI.CT.S_ITS ---
PROCEDURE: CT ANGIO CHEST PE PROTOCOL INDICATIONS: Large unprovoked clot burden in the left lower extremity TECHNIQUE: After the administration of intravenous contrast, 2 mm thick sections acquired from the pulmonary apices to the posterior costophrenic angles. 3-dimensional maximum intensity projection (MIP) coronal and sagittal reformats were then acquired through the thorax. For radiation dose reduction, the following was used: automated exposure control, adjustment of mA and/or kV according to patient size. COMPARISON: None. FINDINGS: Image quality: Diagnostic. Pulmonary arteries: Very small burden proximal segmental pulmonary embolus in the right middle lobe and right lower lobe. Lower Neck: No enlarged lymph nodes. Thyroid: No thyroid nodules which require sonographic follow up, per consensus guidelines. Axillae: No enlarged lymph nodes. Chest Wall: Unremarkable. Bones: Unremarkable. Lungs and Pleura: No pneumothorax or pleural effusions. No consolidation or suspicious nodules. Heart: Heart size is normal. No pericardial effusion. The left ventricle to right ventricle ratio is greater than 1, which does not indicate heart strain. Thoracic Vessels: No aortic aneurysm. Mediastinum and Tata: No enlarged lymph nodes. Esophagus: No wall thickening. No hiatal hernia. Upper Abdomen: Visualized upper abdomen solid organs and bowel loops appear normal. IMPRESSION: Very small burden of segmental pulmonary embolus in the right middle lobe and right lower lobe. No evidence of heart strain or infarct. No acute cardiopulmonary process. Dictated by: Yg Mcelroy M.D. on 01/05/2024 at 15:00 Approved by: Yg Mcelroy M.D. on 01/05/2024 at 15:02
[2024-01-05 13:41] LABS: Add Manual Diff / Slide Review NO; Basophils Absolute Auto 0 /uL (0-100); Basophils Percent Auto 0.4 % (0-2); Eosinophils Absolute Auto 100 /uL (0-450); Eosinophils Percent Auto 0.6 % (2-4); Hematocrit 40.7 % (36-46); Hemoglobin 13.7 g/dL (12.0-16.0); Lymphocytes Absolute Auto 900 /uL (1100-4500); Lymphocytes Percent Auto 8.9 % (25-40); Mean Corpuscular HGB Conc 33.6 % (30-36); Mean Corpuscular Hemoglobin 29.4 PG (26-34); Mean Corpuscular Volume 87.5 fL (80-100); Monocytes Absolute Auto 600 /uL (0-900); Monocytes Percent Auto 5.3 % (3-14); Neutrophils Absolute Auto 9000 /uL (1500-7000); Neutrophils Percent Auto 84.8 % (50-75); Platelet Count 233 X10^3/uL (150-400); Red Blood Cell Count 4.66 X10^6/uL (4.0-5.2); Red Cell Distribution Width 13.7 % (11.6-14.8); White Blood Cell Count 10.6 X10^3/uL (4.5-11.0)
[2024-01-05 13:47] LABS: D Dimer 3908 ng/ml (<500)
[2024-01-05 13:48] LABS: PTT Partial Thromboplastin Tim 31 SECONDS (25.1-36.5)
[2024-01-05 13:50] LABS: Alanine Aminotransferase 27 IU/L (<35); Albumin 4.7 g/dL (3.5-5.0); Albumin Globulin Ratio 1.3 (1.0-2.8); Alkaline Phosphatase 117 U/L (38-126); Aspartate Aminotransferase 28 IU/L (14-36); BUN Creatinine Ratio 13.1 (6-22); Bilirubin Total 0.8 mg/dL (0.2-1.3); Blood Urea Nitrogen 11 mg/dL (7-17); Calcium 9.7 mg/dL (8.4-10.2); Carbon Dioxide 23 mmol/L (22-32); Chloride 105 mmol/L (98-107); Estimated Glomerular Filt Rate > 60 mL/min (>60); Globulin 3.6 g/dL (1.7-4.1); Glucose 122 mg/dL (80-110); HEMOLYSIS < 15 (0-50); Potassium 4.1 mmol/L (3.4-5.1); Sodium 138 mmol/L (137-145); Total Protein 8.3 g/dL (6.3-8.2)
--- NOTE | 2024-01-05 13:57 | EKG_ITS ---
[address] [address] Test Date: 2024-01-05 Pat Name: Jennifer Allan Department: [facility] Room: Gender: Female Certified Medication Aide: IGGY : 1955 Requested By: Order Number: [id number] Reading MD: Tomasz Sky Measurements Intervals Sigurd Rate: 81 P: 25 HI: 128 QRS: -6 QRSD: 78 T: 10 QT: 388 QTc: 450 Interpretive Statements Normal sinus rhythm Electronically Signed On 01-05-2024 18:11:51 PDT by Tomasz Sky
--- NOTE | 2024-01-05 14:00 | PC.NURSE ---
This RNs first interaction with patient, patient moved from fast track to main ED for physician assessment and observation.
[2024-01-05 14:02] LABS: Troponin I < 0.012 ng/mL (0.01-0.034)
--- NOTE | 2024-01-05 16:01 | PM.CALLCOV.1 ---
Call Coverage Note Note Date of Patient Contact: 01/05/24 Time of Patient Contact: 16:01 Narrative of Care Provided: Medicine was called for possible observation admission. ER provider is concerned for phlegmasia cerulea dolens, also for possible development of worsening PE given the size of the clot. If there is concern for this, recommend transfer to higher level facility where there is an ability to intervene on these conditions should they occur as IR is not available at [facility] nor is vascular surgery. In review of the CTA there is a small clot burden with no evidence of R heart strain currently. Typically the indication for admission for DVT to [facility] is limited to stability without need for interventions, and primarily inability to walk due to DVT. However in the setting of acute skin changes, along with minimal risk factors for bleeding she should be at higher level facility for possible thrombectomy or thrombolytic therapy.
[2024-01-05] MEDS: HEPARIN 5,000 UNIT/ML VIAL 6500 UNIT IV (16:42)
[2024-01-05] MEDS: HEPARIN DRIP 25,000 UNIT/500 ML IV.SOLN 28.576 UNIT IV (16:43)
[2024-01-05 17:04] LABS: PTT Partial Thromboplastin Tim 32 SECONDS (25.1-36.5)
[2024-01-05 18:45] LABS: Creatine Kinase 68 U/L (30-135)
--- NOTE | 2024-01-05 19:37 | PC.NURSE ---
Pt awake and alert lying in ED stretcher speaking with family at bedside. No adverse reactions to administered medications. No distress noted at his time. Pt remains connected to cardiac, blood pressure, pulse ox, and resp monitors with alarms on and audible. Call light within reach. No complaints or requests stated at this time. IV heparin running at prescribed rate. IV site clean, dry, and intact. Left leg elevated on pillows with leg in position of comfort. Pt states understanding of strict bed rest.
--- NOTE | 2024-01-05 19:57 | PC.NURSE ---
Verbal order per Dr. Culver for night meds per pt request.
[2024-01-05] MEDS: ATORVASTATIN 20 MG TABLET 80 MG PO (20:03)
[2024-01-05] MEDS: METOPROLOL ER 50 MG TABLET PO (20:03)
--- NOTE | 2024-01-05 20:08 | PC.NURSE ---
Pt will take home med- Omeprazole 20mg at this time. Hospital does not carry this med.
--- NOTE | 2024-01-05 22:55 | PC.NURSE ---
No change in patient condition or status. Pt resting quietly with eyes closed, resps even and not labored. No distress noted at this time. Pt rouses easily to verbal stimuli with appropriate responses. Straight stick preformed for required timed lab without difficulty. Pt remains in supine position with pillows under left leg and leg elevated above the level of the heart. Pedal pulses palpable. No change in color, temperature, or swelling of leg. Pt remains connected to cardiac, resp, pulse ox, and blood pressure monitors with alarms on and audible. Call light within reach. No needs or complaints noted at this time.
[2024-01-05 23:21] LABS: PTT Partial Thromboplastin Tim 177 SECONDS (25.1-36.5)
--- NOTE | 2024-01-05 23:33 | PC.NURSE ---
Dr. Culver made aware of current ptt result. No new orders rcv'd at this time. Will continue to follow protocol. Heparin infusion paused at this time.
[2024-01-06] VITALS (23 sets, daily range): BP systolic 103–128; BP diastolic 58–79; PULSE 66–83; RESP 15–24; O2SAT 92–97
--- NOTE | 2024-01-06 00:45 | PC.NURSE ---
No change in patient condition or status. Pt awake and alert speaking with staff. No adverse reactions to administered medications. No distress noted at this time. Pt moved to inpatient hospital bed for comfort. ED stretcher placed next to hospital bed and pt assisted with scooting from one to the other, maintaining non weight bearing status. Pt positioned slightly on right side with pillows behind, left leg ramains on pillows and elevated above the level of the heart. Pt remains connected to cardiac, resp, blood pressure, and pulse ox monitor with alarms on and audible. Call light within reach. No change in condition or status of left lower extremity.
--- NOTE | 2024-01-06 03:07 | PC.NURSE ---
Pt resting quietly with eyes closed, resps even and not labored. No distress noted at this time. Pt remains connected to cardiac, resp, blood pressure, and pulse ox monitors with alarms on and audible. Call light within reach.
--- NOTE | 2024-01-06 04:07 | PC.NURSE ---
Pt resting quielty with eyes closed, resps even and not labored. No distress noted at this time. Pt rouses easily to verbal stimuli. Upon inspection and palpation there is no swelling or skin tightness noted in left lower extremity, color matches right lower extremity, warm temp to touch matching right lower extremity. Pedal pulse is strong and is in sync with radiation monitor. Previously noted symptoms in left lower extremity are now resolved. Pt remians connected to blood pressure, cardiac, pulse ox, and resp monitors with alarms on and audible. Call light within reach. Pt remains supine slightly angled to right side with pillows behind right side. Left lower extremity remains elevated above the level of the heart. Pt with no states complaints or needs at this time.
--- NOTE | 2024-01-06 06:41 | PC.NURSE ---
Straight stick blood draw completed for ptt
[2024-01-06 06:53] LABS: Hematocrit 35.5 % (36-46); Platelet Count 203 X10^3/uL (150-400)
[2024-01-06 07:12] LABS: PTT Partial Thromboplastin Tim 113 SECONDS (25.1-36.5)
--- NOTE | 2024-01-06 07:16 | PC.NURSE ---
EMS still in ED when ptt resulted @113. Confirmed per protocol to drop rate to 13u/kg/hr. Informed EMS of rate change prior to leaving facility. Contacted ESTHER Garcia accepting nurse at to update.
[2024-01-08 16:39] LABS: Protein C-Functional 66 % (73-180); Protein S-Functional 104 % (63-140)
== END 2024-01-06 07:04 | disposition short-term general hospital (02) ==
PROVIDERS: Emergency Medicine; Physician Assistant; Emergency Provider Emergency Medicine; PCP Internal Medicine
DX: I80.212 Phlebitis and thrombophlebitis of left iliac vein (principal); I26.99 Other pulmonary embolism without acute cor pulmonale; Z79.82 Long term (current) use of aspirin; R00.0 Tachycardia, unspecified; I10 Essential (primary) hypertension
CPT/HCPCS: 36415; 71275; 80053; 81241; 82550; 84484; 85014; 85018; 85025; 85049; 85303; 85306; 85379; 85610; 85730; 93005; 93926; 93971; 96365; 96366; 96375; 99285; 99291; J1644

== ENCOUNTER → 2024-09-10 16:35 | Outpatient (CLI) | payer OTHER, SELFPAY ==
--- NOTE | 2024-09-10 16:36 | DI.MG.S_ITS ---
MM screening mammo BI: 09/10/2024. BI-RADS: 1 CLINICAL: 69-year old female for bilateral screening mammogram. Tyrer-Cuzick lifetime risk of 12.9%. Current reported family history of breast cancer: sister. PRIOR EXAMS 07/14/2023, 06/17/2021, 03/13/2019, MAMMOGRAPHY TECHNIQUE: 2D and 3D (tomosynthesis) digital mammographic views obtained, with additional images as needed for full coverage. Current study was also evaluated with a Computer Aided Detection (CAD) system. DENSITY B. There are scattered areas of fibroglandular density. MAMMOGRAPHY FINDINGS Bilateral: No suspicious mass, asymmetry, microcalcification, or other abnormality seen. No significant change from comparison. IMPRESSION: * No evidence of malignancy. RECOMMENDATIONS Bilateral * Annual screening mammography. OVERALL ASSESSMENT CATEGORY BI-RADS-1: Negative. The [employer] recommends annual screening mammography beginning at age 40 for women with average risk of breast cancer. ELECTRONICALLY SIGNED: Marcelino Crump M.D. on 09/11/2024 at 11:44:59 AM PT Interpreting Station ID: [id number]
== END ==
PROVIDERS: PCP Internal Medicine; Referring Provider Internal Medicine; Visit Provider Internal Medicine
DX: Z12.31 Encounter for screening mammogram for malignant neoplasm of breast (principal); Z80.3 Family history of malignant neoplasm of breast
CPT/HCPCS: 77063; 77067

== ENCOUNTER → 2024-12-12 18:36 | Outpatient (CLI) | payer OTHER, SELFPAY ==
--- NOTE | 2024-12-12 18:39 | DI.MRI.S_ITS ---
PROCEDURE: MR ANGIO HEAD WO CON INDICATIONS: vertigo TECHNIQUE: Noncontrast axial 3-D [id number] MR angiogram, with 3-dimensional maximum intensity projection (MIP) reformats of the internal carotid arteries and posterior circulation then performed. COMPARISON: None. FINDINGS: Image quality: Excellent. Anterior circulation: Intracranial internal carotid arteries demonstrate normal size and intraluminal flow signal. The flow within the paired anterior cerebral arteries is normal and symmetric. The flow within the middle cerebral arteries is normal and symmetric. The anterior communicating artery is seen. No stenoses, occlusions, or aneurysms. Posterior circulation: Visualized portions of the vertebral arteries demonstrate normal caliber, and join to form a normal appearing basilar artery. The flow within the posterior cerebral arteries is normal and symmetric. No stenoses, occlusions, or aneurysms. IMPRESSION: Unremarkable MR angiogram of the brain. No large vessel occlusion, aneurysm vascular malformation Approved by: Pablo Medley M.D. on 12/15/2024 at 15:57
--- NOTE | 2024-12-12 18:46 | DI.MRI.S_ITS ---
PROCEDURE: MR HEAD/BRAIN WO CON INDICATIONS: VERTIGO TECHNIQUE: Noncontrast axial T1 spin echo, axial T2 fast spin echo, sagittal and axial FLAIR, coronal T2 fast spin echo, axial gradient echo, axial diffusion and ADC through the brain. COMPARISON: None. FINDINGS: Image quality: Excellent. CSF Spaces: Basal cisterns are patent. No extra-axial fluid collections. Ventricles are normal in size and shape. Brain: No intracranial masses or hemorrhage. Clayton/white matter interface is normal. Brainstem appears normal. Diffusion-weighted images demonstrate no acute infarct. No chronic ischemic insults. Normal intravascular flow voids are present. Skull and face: Calvarium has normal marrow signal. Orbits appear normal. Sinuses: Sinuses and mastoids are clear. IMPRESSION: Unremarkable of the brain Approved by: Pablo Medley M.D. on 12/15/2024 at 15:53
== END ==
LOC: MRI 18:37
PROVIDERS: PCP Internal Medicine; Referring Provider Internal Medicine; Visit Provider Internal Medicine
DX: R42 Dizziness and giddiness (principal)
CPT/HCPCS: 70544; 70551